=== PATIENT | male | born 1995 | race African-American/Black ===

== ENCOUNTER 2020-03-26 15:59 | Emergency (ER) | payer OTHER, SELFPAY ==
[2020-03-26] VITALS (10 sets, daily range): BP systolic 105–131; BP diastolic 67–82; PULSE 50–62; RESP 17–24; TEMP 36.6–37; O2SAT 98–100; BMI 32.6
--- NOTE | 2020-03-26 16:26 | ED_ITS ---
HPI - Extremity Problem General Chief complaint: Extremity Injury, Upper Stated complaint: SHOULDER DISLOCATION Time Seen by Provider: 03/26/20 16:26 Source: patient Mode of arrival: ambulatory Limitations: no limitations History of Present Illness HPI Narrative: Patient with history of recurrent right shoulder dislocation about 6 times were trying to get up from the bed and dislocated his right shoulder. No other injuries Complaint: extremity pain Onset (ago): minute(s) Pain Consistency: constant Location: right Related Data Previous Rx's Medication Instructions Recorded ibuprofen 600 mg PO Q6H PRN #20 tab 03/26/20 Allergies Allergy/AdvReac Type Severity Reaction Status Date / Time No Known Allergies Allergy Verified 03/26/20 16:11 Review of Systems Review of Systems: Yes all other systems are reviewed and are negative COUNTS INCLUDE 234 BEDS AT THE [facility] Social History Social History Advance Directives: No Advance Directives Information Provided: Yes Physical Exam Vital Signs: Vital Signs: Last Vital Signs Temp 98.6 F 03/26/20 18:00 Pulse 59 03/26/20 18:00 Resp 17 03/26/20 18:00 BP 105/69 03/26/20 18:00 Pulse Ox 99 03/26/20 18:00 Body Mass Index 32.6 Appearance: Alert. Oriented X3. No acute distress. Eyes: Pupils equal, round and reactive to light. ENT: Pharynx normal. Neck: Normal inspection. Neck supple. CVS: Normal heart rate and rhythm. Pulses normal. Respiratory: No respiratory distress. Breath sounds normal. Abdomen: Soft and nontender. Bowel sounds are present, no mass palpable, no CVA tenderness Skin: Skin warm and dry. Normal skin color. Normal skin turgor. Extremities: No lower extremity edema. Right shoulder : Deformity suggestive of anterior dislocation, neurovascular intact limited abduction because of pain Neuro: Oriented X 3. No motor deficit. No sensory deficit. Procedures Orthopedic Joint Reduction Joint #1: Time Out Performed: Yes Side: right Joint Reduction Location: shoulder Analgesia: procedural sedation Shoulder Technique Used (if applicable): external rotation Post-reduction neuro exam: intact Post-reduction vascular: intact Post Reduction X-Ray Obtained: Yes Post Reduction X-Ray Results: reduced Splint Applied: Yes Patient Tolerated Procedure: well Procedural Sedation Indication: fracture/dislocation reduction ASA Class: I Time of Last PO Intake: 15:30 Preparation: cardiac rn applied and pulse oximeter IV Propofol dose (mg): 100 Patient Tolerated Procedure: well Complications: none Discharge Plan Discharge Clinical Impression: Anterior dislocation of right shoulder Qualifiers: Encounter type: initial encounter Qualified Code(s): S43.014A - Anterior dislocation of right humerus, initial encounter Patient Disposition: Home, Self-Care Instructions: Shoulder Dislocation (ED) Additional Instructions: Keep your right arm in sling for support. Avoid lifting of right arm above shoulder for next 2 weeks. Ibuprofen for pain as advised Prescriptions: New ibuprofen 600 mg tablet 600 mg PO Q6H PRN (Reason: pain) Qty: 20 RF: 0 Referrals: Harlan Gunn MD [Physician] - 1 week Interventions: ED Discharge Assessment Last Done: 03/26/20 18:56 Discharge Date/Time: 03/26/20 18:56
--- NOTE | 2020-03-26 16:29 | XR_ITS ---
EXAMINATION: XR SHOULDER, RIGHT CLINICAL INFORMATION: Trauma, dislocation COMPARISON: None TECHNIQUE: Frontal and lateral views right shoulder. FINDINGS: There is an anterior subcoracoid dislocation right humeral head. No visible fracture. The acromioclavicular alignment is normal. The right lung apex shows no pneumothorax or pleural reaction. XR/XR shoulder RT min 2V IMPRESSION: Right anterior shoulder dislocation. No visible fracture.
[2020-03-26] MEDS: Morphine Sulfate 4 MG/ML CARTRIDGE IVPUSH (17:01)
[2020-03-26] MEDS: ondansetron HCL 4 MG/2 ML VIAL IVPUSH (17:02)
[2020-03-26] MEDS: propofoL 200 MG/20 ML VIAL 100 MG IVPUSH (17:27)
--- NOTE | 2020-03-26 17:33 | XR_ITS ---
EXAMINATION: XR SHOULDER, RIGHT CLINICAL INFORMATION: Post reduction. COMPARISON: None TECHNIQUE: AP view of the right shoulder. FINDINGS: There is satisfactory alignment of glenohumeral joint postreduction. No visible fracture seen. The soft tissues are normal. XR/XR shoulder RT 1V IMPRESSION: Normal glenohumeral joint is alignment postreduction. No visible fracture seen.
== END 2020-03-26 18:56 | disposition home or self-care (01) ==
PROVIDERS: Emergency Provider Internal Medicine
DX: S43.014A Anterior dislocation of right humerus, initial encounter (principal); M25.511 Pain in right shoulder; S43.004A Unspecified dislocation of right shoulder joint, initial encounter; X58.XXXA Exposure to other specified factors, initial encounter; Y93.9 Activity, unspecified; Y92.003 Bedroom of unspecified non-institutional (private) residence as the place of occurrence of the external cause; Y99.9 Unspecified external cause status
CPT/HCPCS: 23655; 73020; 73030; 96374; 96375; 99152; 99284; 99285; J2270; J2405